=== PATIENT | female | born 1995 | race Caucasian/White ===

== ENCOUNTER 2023-05-14 12:42 | Emergency (ER) | payer BC ==
[~2023-05-14] VITALS: Ht 170.2 cm; Wt 74.9 kg
[~2023-05-14 12:42] MED LIST: PRENATAL VITAM1 EACH PO
[2023-05-14 13:56] LABS: BASOPHILS 0.6 % (0-2); EOSINOPHILS 0.6 % (0-6); HEMATOCRIT 39.6 % (35.0-50.0); HEMOGLOBIN 13.3 g/dL (12.0-18.0); LYMPHOCYTES 34.2 % (24-44); MCH 29.7 (27-36); MCHC 33.7 g/dl (30-36); MCV 88.1 fl (81-99); MONOCYTES 7.2 % (0-12); NEUTROPHILS 57.4 % (39-80); PLATELET COUNT 376 K/uL (140-440); RBC 4.49 M/ul (4.3-5.7); RDW 13.8 (10.5-15.0)
[2023-05-14 14:01] LABS: BILIRUBIN, URINE NEGATIVE (negative); BLOOD/HGB, URINE LARGE (Negative); KETONE, URINE TRACE (Negative); LEUK ESTERASE, URINE NEGATIVE (negative); NITRITE, URINE NEGATIVE (negative)
[2023-05-14 14:11] LABS: WHITE BLOOD CELLS, URINE 0-1 /HPF (0-5)
[2023-05-14 14:12] LABS: BACTERIA, URINE RARE /hpf (negative); CASTS, URINE NONE SEEN \\lpf; COLLECTION TYPE, URINE CLEAN CATCH; CRYSTALS, URINE NONE SEEN (0-1+); EPITHELIAL CELLS, URINE SQUAMOUS 2+ /lpf (0-1+); REFLEX CULTURE, URINE No (No)
[2023-05-14 14:15] LABS: ALBUMIN 3.7 g/dL (3.4-5.0); ALBUMIN/GLOBULIN RATIO 0.9 (1.1-2.4); ANION GAP 15.7 (7-21); BILIRUBIN, TOTAL 0.5 ng/dL (0.2-1.0); BUN/CREATININE RATIO 16.39 (6.0-28.6); CALCIUM 9.2 mg/dL (8.5-10.1); CREATININE, SERUM 0.61 mg/dL (0.55-1.02); POTASSIUM 3.7 mmol/L (3.5-5.1); PROTEIN, TOTAL 7.8 g/dL (6.4-8.2)
[2023-05-14 14:19] LABS: ABO O
[2023-05-14 14:20] LABS: RH POSITIVE
[2023-05-14 16:40] VITALS: BP 134/82
== END 2023-05-14 16:40 | disposition home or self-care (01) ==
LOC: ED 12:42
PROVIDERS: Emergency Medicine
DX: O03.9 Complete or unspecified spontaneous abortion without complication (principal); Z88.2 Allergy status to sulfonamides; Z79.899 Other long term (current) drug therapy
CPT/HCPCS: 36415; 76801; 76817; 80053; 81001; 84702; 85025; 86900; 86901; 99284-25